=== PATIENT | female | born 1925 | race Caucasian/White ===

== ENCOUNTER 2016-12-03 10:12 | Inpatient (IN) | payer MEDICARE, OTHER ==
[~2016-12-03] VITALS: Ht 162.6 cm; Wt 59.1 kg
[2016-12-03] MEDS ORDERED: SODIUM CHLORIDE 0.9% 1,000ML IVBOLUS ONE (10:30)
[2016-12-03] MEDS ORDERED: SODIUM CHLORIDE FLUSH 10ML SYR IVF ONE (10:30)
[2016-12-03] MEDS ORDERED: PLEASE ENTER HEIGHT AND WEIGHT MC SCH ×2 (11:00→14:00)
[2016-12-03] MEDS ORDERED: MULT-252 PO (11:05)
[2016-12-03] MEDS ORDERED: VALS160T3 PO (11:05)
[2016-12-03] MEDS ORDERED: ALBU8.5H3 PO (11:05)
[2016-12-03] MEDS ORDERED: GLUC1CAP48 PO (11:05)
[2016-12-03] MEDS ORDERED: ATEN25TA PO (11:05)
[2016-12-03] MEDS ORDERED: SITA50TA PO (11:05)
[2016-12-03] MEDS ORDERED: FLUT1BLS PO (11:05)
[2016-12-03] MEDS ORDERED: ROSU10TA PO (11:05)
[2016-12-03] MEDS ORDERED: VALS1TAB7 PO (11:05)
[2016-12-03] MEDS ORDERED: FLAX10002 PO (11:05)
[2016-12-03 11:31] LABS: BLOOD UREA NITROGEN 18 mg/dL (7-18)
[2016-12-03 11:36] LABS: ASPARTATE AMINO TRANSFERASE 38 U/L (15-37)
[2016-12-03 11:38] LABS: IS PT STATUS REG ER OR PRE ER? YES
[2016-12-03] MEDS ORDERED: ENALAPRILAT 1.25 MG/ML, 2ML IVPush PRN (13:30)
[2016-12-03] MEDS ORDERED: DOCUSATE 100 MG CAPSULE PO PRN (13:30)
[2016-12-03] MEDS ORDERED: ACETAMINOPHEN 325 MG TABLET PO PRN (13:30)
[2016-12-03] MEDS ORDERED: ZOLPIDEM 5MG TABLET PO PRN (13:30)
[2016-12-03] MEDS ORDERED: GUAIFENESIN/DM 200-20MG, 10ML UDC PO PRN (13:30)
[2016-12-03] MEDS ORDERED: POLYETHYLENE GLYCOL 17 GM PACKET PO PRN (13:30)
[2016-12-03] MEDS ORDERED: ONDANSETRON ODT 4 MG PO PRN (13:30)
[2016-12-03 14:32] VITALS: BP 157/55
[2016-12-03] MEDS: ENOXAPARIN 40 MG/0.4 ML SQ SCH (15:11)
[2016-12-03] MEDS: PLEASE ENTER ALLERGIES MC SCH ×2 (15:12)
[2016-12-03 16:31] VITALS: BP 117/45
[2016-12-03 19:55] VITALS: BP 156/62
[2016-12-03] MEDS: ATORVASTATIN 20 MG TABLET PO SCH (21:32)
[2016-12-03 23:58] VITALS: BP 165/55
[2016-12-04] VITALS (7 sets, daily range): BP systolic 128–166; BP diastolic 44–66
[2016-12-04] MEDS ORDERED: ATROPINE SYRINGE 0.1 MG/ML, 10ML IVPush ONE (00:30)
[2016-12-04 05:05] LABS: BLOOD UREA NITROGEN 16 mg/dL (7-18)
[2016-12-04] MEDS: FLUTICASONE/VILANTEROL 200-25MCG/INH INH SCH (10:24)
[2016-12-04] MEDS: VALSARTAN 160 MG TABLET PO SCH (10:24)
[2016-12-04] MEDS: SITAGLIPTIN 50MG TABLET PO SCH (10:24)
[2016-12-04] MEDS: AMLODIPINE 5 MG TABLET PO SCH (10:24)
[2016-12-04] MEDS: ENOXAPARIN 40 MG/0.4 ML SQ SCH (17:14)
[2016-12-04] MEDS: ATORVASTATIN 20 MG TABLET PO SCH (23:06)
[2016-12-05 02:15] VITALS: BP 136/46
[2016-12-05 06:40] VITALS: BP 117/44
[2016-12-05 10:23] VITALS: BP 154/53
[2016-12-05] MEDS ORDERED: POLYETHYLENE GLYCOL 17 GM PACKET NG ONE (10:30)
[2016-12-05] MEDS: VALSARTAN 160 MG TABLET PO SCH (10:33)
[2016-12-05] MEDS: SITAGLIPTIN 50MG TABLET PO SCH (10:33)
[2016-12-05] MEDS: FLUTICASONE/VILANTEROL 200-25MCG/INH INH SCH (10:33)
[2016-12-05] MEDS: AMLODIPINE 5 MG TABLET PO SCH (10:34)
[2016-12-05] MEDS ORDERED: CEFAZOLIN PMX 1GM/50ML 50 ML IVPB ONE (11:00)
[2016-12-05 13:30] VITALS: BP 168/61
[2016-12-05] MEDS: ENOXAPARIN 40 MG/0.4 ML SQ SCH (17:45)
[2016-12-05 19:45] VITALS: BP 146/54
[2016-12-05] MEDS: ATORVASTATIN 20 MG TABLET PO SCH (21:00)
[2016-12-06 00:50] VITALS: BP 143/49
[2016-12-06 07:52] VITALS: BP 174/57
[2016-12-06] MEDS: SODIUM CHLORIDE 0.9% 1,000 ML IV SCH ×2 (08:00→15:00)
[2016-12-06 08:18] VITALS: BP 168/57
[2016-12-06] MEDS ORDERED: FENTANYL PF 100 MCG/2ML ONE (08:19)
[2016-12-06] MEDS ORDERED: LIDOCAINE 2%, 20ML ONE (08:19)
[2016-12-06] MEDS ORDERED: CEFAZOLIN 1,000 MG ONE (08:19)
[2016-12-06] MEDS ORDERED: CEFAZOLIN PMX 1GM/50ML 50 ML ONE (08:19)
[2016-12-06] MEDS ORDERED: MIDAZOLAM 1 MG/ML, 5ML ONE (08:19)
[2016-12-06] MEDS: AMLODIPINE 5 MG TABLET PO SCH (10:55)
[2016-12-06] MEDS: SITAGLIPTIN 50MG TABLET PO SCH (10:56)
[2016-12-06] MEDS: FLUTICASONE/VILANTEROL 200-25MCG/INH INH SCH (10:56)
[2016-12-06] MEDS: VALSARTAN 160 MG TABLET PO SCH (10:56)
[2016-12-06] MEDS ORDERED: ACETAMINOPHEN 325 MG TABLET PO PRN (11:30)
[2016-12-06 12:53] VITALS: BP 157/72
[2016-12-06] MEDS: CEFAZOLIN PMX 1GM/50ML 50 ML IVPB SCH ×2 (15:31→23:44)
[2016-12-06] MEDS: ENOXAPARIN 40 MG/0.4 ML SQ SCH (15:32)
[2016-12-06 19:12] VITALS: BP 126/64
[2016-12-06] MEDS: ATORVASTATIN 20 MG TABLET PO SCH (20:40)
[2016-12-06] MEDS: SODIUM CHLORIDE FLUSH 10ML SYR IVF SCH (20:40)
[2016-12-06] MEDS ORDERED: ZOLPIDEM 5MG TABLET PO PRN (21:00)
[2016-12-07 01:50] VITALS: BP 134/62
[2016-12-07] MEDS: SODIUM CHLORIDE 0.9% 1,000 ML IV SCH ×2 (02:45)
[2016-12-07 07:02] VITALS: BP 155/87
[2016-12-07] MEDS ORDERED: ATENOLOL 25 MG TABLET PO SCH (08:30)
[2016-12-07] MEDS: SITAGLIPTIN 50MG TABLET PO SCH (08:34)
[2016-12-07] MEDS: FLUTICASONE/VILANTEROL 200-25MCG/INH INH SCH (08:35)
[2016-12-07] MEDS: VALSARTAN 160 MG TABLET PO SCH (08:35)
[2016-12-07] MEDS: SODIUM CHLORIDE FLUSH 10ML SYR IVF SCH (08:36)
== END 2016-12-07 11:30 | disposition home or self-care (01) | DRG 243 ==
LOC: ED 11:21 → INTOOBSV 12:03 → EDIP 12:03 → OBSVTOIN 12:03 → 5SO 13:42 → DCLOUNGE 12-07 10:56
PROVIDERS: ADMIT Hospitalist
PROC: 0JH606Z Insertion of Pacemaker, Dual Chamber into Chest Subcutaneous Tissue and Fascia, Open Approach (ICD-10-PCS; principal; 2016-12-06)
PROC: 02H63JZ Insertion of Pacemaker Lead into Right Atrium, Percutaneous Approach (ICD-10-PCS; 2016-12-06)
PROC: 02HK3JZ Insertion of Pacemaker Lead into Right Ventricle, Percutaneous Approach (ICD-10-PCS; 2016-12-06)
DX: I44.2 Atrioventricular block, complete (principal); I50.32 Chronic diastolic (congestive) heart failure; E78.5 Hyperlipidemia, unspecified; D64.9 Anemia, unspecified; I07.1 Rheumatic tricuspid insufficiency; Z66 Do not resuscitate; I11.0 Hypertensive heart disease with heart failure; I35.8 Other nonrheumatic aortic valve disorders; E11.9 Type 2 diabetes mellitus without complications; I48.91 Unspecified atrial fibrillation; I48.92 Unspecified atrial flutter; J44.9 Chronic obstructive pulmonary disease, unspecified; M19.042 Primary osteoarthritis, left hand; Z85.43 Personal history of malignant neoplasm of ovary; Z87.891 Personal history of nicotine dependence; Z90.49 Acquired absence of other specified parts of digestive tract; Z90.710 Acquired absence of both cervix and uterus; Z91.81 History of falling; Z99.81 Dependence on supplemental oxygen; Z90.722 Acquired absence of ovaries, bilateral; Z79.899 Other long term (current) drug therapy
CPT/HCPCS: 33208; 36415; 71010; 80048; 80053; 82962; 83605; 83880; 84484; 85025; 85610; 93005; 93306; C1779; C1785; C1892; J0690; J1650; J2250; J3010; J3490